=== PATIENT | female | born 1960 | race Caucasian/White ===

== ENCOUNTER → 2018-07-07 10:59 | Outpatient (CLI) | payer OTHER, SELFPAY ==
[2018-07-07 12:21] LABS: HIV 1 and 2 Antibody NEGATIVE (NEGATIVE); Hep C Virus Ab w/Reflex Quant NEGATIVE s/c (NEGATIVE)
[2018-07-09 14:26] LABS: RPR Screen Nonreactive (Nonreactive)
== END ==
PROVIDERS: PCP Family Medicine; Visit Provider Specialist
DX: Z20.2 Contact with and (suspected) exposure to infections with a predominantly sexual mode of transmission (principal)
CPT/HCPCS: 36415; 86592; 86703; 86803

== ENCOUNTER → 2020-05-28 09:39 | Outpatient (CLI) | payer OTHER, SELFPAY ==
[2020-05-28] MEDS: COVID-19 VACC(MODERNA-1)/PF 100 MCG/0.5 ML VIAL IM (09:43)
== END ==
PROVIDERS: PCP Family Medicine; Visit Provider Internal Medicine
DX: Z23 Encounter for immunization (principal)
CPT/HCPCS: 0011A; 91301

== ENCOUNTER → 2020-06-24 08:53 | Outpatient (CLI) | payer OTHER, SELFPAY ==
[2020-06-24] MEDS: COVID-19 VACC #2, MRNA(MOD) 100 MCG/0.5 ML VIAL IM (08:57)
== END ==
PROVIDERS: PCP Family Medicine; Visit Provider Internal Medicine
DX: Z23 Encounter for immunization (principal)
CPT/HCPCS: 0012A; 91301

== ENCOUNTER 2021-02-26 13:23 | Day surgery (SDC) | payer OTHER, SELFPAY ==
[2021-02-24 07:50] VITALS: BMI 43.0
[2021-02-26] VITALS (7 sets, daily range): BP systolic 127–171; BP diastolic 62–82; PULSE 60; RESP 14–20; TEMP 36.6–36.8; O2SAT 93–97; BMI 43.0
[2021-02-26 14:11] LABS: COVID19 -Nasal RAPID Negative (Negative)
[2021-02-26] MEDS: ACETAMINOPHEN 325 MG TABLET 975 MG PO (14:33)
[2021-02-26] MEDS: GABAPENTIN 300 MG CAPSULE PO (14:33)
[2021-02-26] MEDS: LACTATED RINGERS 1,000 ML 42 ML IV (14:33)
--- NOTE | 2021-02-26 14:53 | SUR.OPER ---
Supine on padded OR bed, head on pillow, Rightn arms secured on padded arm boards and left arm positioned on arm table at <90 degrees abduction, legs uncrossed, safety belt at thigh, tape over blanket over lower legs.
--- NOTE | 2021-02-26 14:55 | PM.PREOP ---
Pre-operative Note Interval Note History & Physical reviewed/Exam performed by Physician: Yes Changes to H&P: No
[2021-02-26] MEDS: BUPIVACAINE 0.25% (PF) VIAL 30 ML INJ (16:19)
[2021-02-26] MEDS: EPINEPHrine 1 MG/ML SUBCUT (16:20)
--- NOTE | 2021-02-26 16:29 | PM.OP.1 ---
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 Removal of sequestrum to the bone. CPT code 75633 [id number] Same procedure as scheduled: Yes Indications: Chronic infection involving the left middle finger soft tissue and bone with x-ray findings of bony destruction most likely due to osteomyelitis. Surgeon: Acosta Rivera Click Yes if Unassisted: Yes Anesthesia Type: General Operative Notes Findings: Significant amount of reactive tissue to the dorsal aspect of the finger. Complete loss of the central slip and dorsal joint capsule most likely due to chronic infection. Extremely brittle bone to both the proximal and middle phalanx. The entire articular surface to both sides of the joint had avulsed from its bony attachment but was still present and did not show significant signs of erosion. Signs of a sequestrum in the the proximal phalanx. Less signs in the middle phalanx. Signs of possible purulence in the the PIP joint. No obvious purulence noted to the soft tissue or dorsal to what was remaining of the extensor tendon. Closure Type: primary Specimen(s): other (Culture swabs taken. Soft tissue also sent in 3 separate specimens for cultures and sensitivity, aerobic and anaerobic, AFB and fungal. Bone sent in 3 separate specimens for cultures and sensitivity, aerobic and anaerobic, AFB and fungal.) Estimated Blood Loss (mL): 2 Tourniquet time (min): 39 Procedure in detail: On date of Service, patient was met in the holding area where her operative site was signed and witnessed by the OR staff. The surgeries once again discussed with the patient and any remaining questions or concerns she had were answered fully. Patient was taken back to the operating theater placed on the operating table in a supine position. Great care was taken to ensure all bony prominences were appropriately padded. Well-padded tourniquet was placed up along the upper extremity and a time-out was performed verifying patient's name procedure and operative site. Left arm was then prepped and draped in the normal sterile fashion. Esmarch was used to exsanguinate the limb the tourniquet was turned up to 250 mmHg. Curvilinear incision was made over the dorsal aspect of the finger. Fifteen blade was used incise through skin and fascial tissue. Sharp dissection was continued with a 15 blade. Swabs were taken of the dorsal aspect of the finger. When could see that the central slip in the dorsal capsule were gone. Deep knife was then used to sharply excise the tissue over the dorsal aspect of the PIP joint. This was set aside for soft tissue cultures and specimens. Rongeur was used to remove any remaining soft tissue at the PIP joint. As mentioned above this was split into 3 separate specimens. Patient had a lot of reactive tissue to the dorsal aspect of the finger. Sharp dissection was used to remove this reactive tissue leaving a more healthy extensor mechanism. As mentioned above, the articular surface had avulsed from the end of the proximal and middle phalanxes. Using a curette the intramedullary canal of the proximal phalanx was extensively debrided. We were able to remove quite a bit of material concerning for infection. This was set aside for microbiology. The same was then repeated for the intramedullary canal of the middle phalanx. I did not find the same amount of sequestrum as in the proximal phalanx. Both bones were quite brittle particularly right around the joint. The intramedullary aspect of both bones were copiously debrided using the curette. Next, intramedullary canals were then copiously irrigated with normal saline. This was then followed by the surrounding soft tissue as well. Once we felt that the finger was copiously irrigated and extensively debrided repair of the remaining extensor tendon to to the middle phalanx to try to create the central slip was done with 4-0 Ethibond. The skin was then loosely closed with 4-0 nylon. The finger was then cleaned, dried, and dressed patient was placed into a splint and taken to the PACU in stable condition. Complications: none Post-operative Condition: stable Disposition: PACU Plan for aftercare: Patient will be discharged home today. Once we get final cultures and sensitivities patient will most likely need to be on IV antibiotics for 6 weeks.
--- NOTE | 2021-02-26 16:42 | SUR.PHASEI ---
Pt is now sitting up drinking water and eating ice chips, Dr Rivera by talking with pt now who is A&O and denies pain or nausea, FBS 90 at 1635, VSS, no complaints resting comfortably
--- NOTE | 2021-02-26 17:17 | SUR.PHASEII ---
Pt up and ambulating gait steady, all dc instructions given and pt verbalizes understanding and states will fill both rxs she has with her from doctor. iv dcd site clear, pt dcd in stable condition via wc with all belongings and no complaints in good spirits
== END 2021-02-26 17:17 | disposition home or self-care (01) ==
PROVIDERS: PCP Family Medicine; Referring Provider Orthopaedic Surgery; Visit Provider Orthopaedic Surgery
PROC: (CPT 26235; principal; 2021-02-26 15:15)
DX: M86.9 Osteomyelitis, unspecified (principal); E11.9 Type 2 diabetes mellitus without complications; G47.33 Obstructive sleep apnea (adult) (pediatric); I10 Essential (primary) hypertension; E66.01 Morbid (severe) obesity due to excess calories; Z68.41 Body mass index [BMI] 40.0-44.9, adult; Z20.822 Contact with and (suspected) exposure to COVID-19; Z98.84 Bariatric surgery status; Z87.891 Personal history of nicotine dependence
CPT/HCPCS: 26235; 82962; 87070; 87075; 87101; 87116; 87176; 87205; 87206; 87635; J0171; J1885; J2405; J2704

== ENCOUNTER 2021-03-30 05:45 | Emergency (ER) | payer OTHER, SELFPAY ==
--- NOTE | 2021-03-30 06:16 | ED.GENADULT ---
HPI - General Adult General Stated complaint: confused/foggy x1 day Time Seen by Provider: 03/30/21 06:11 Related Data Home Medications Medication Instructions Recorded Confirmed biotin 2,500 mcg capsule 5 mg PO DAILY 07/07/18 02/26/21 bupropion HCl (smoking deter) 150 150 mg PO BID 07/07/18 02/26/21 mg tablet,12 hr sustained-release(smoking deterrent) cholecalciferol (vitamin D3) 250 10,000 unit PO DAILY 07/07/18 02/24/21 mcg (10,000 unit) capsule clonazepam 1 mg tablet 0.5 mg PO BID 07/07/18 02/26/21 felodipine 5 mg tablet,extended 5 mg PO DAILY 07/07/18 02/26/21 release 24 hr losartan 100 mg tablet (Cozaar) 100 mg PO DAILY 07/07/18 02/26/21 mecobalamin (vitamin B12) 1,000 3,000 mcg SL DAILY tab 07/07/18 02/26/21 mcg disintegrating tablet,sublingual metformin 750 mg tablet,extended 750 mg PO QPM 07/07/18 02/26/21 release 24 hr metoprolol tartrate 50 mg tablet 50 mg PO BID 07/07/18 02/26/21 pravastatin 40 mg tablet 40 mg PO DAILY 07/07/18 02/26/21 pramipexole 1 mg tablet (Mirapex) 1 mg PO BEDTIME 08/16/18 02/26/21 Previous Rx's Medication Instructions Recorded amoxicillin-potassium clavulanate 1 tab PO BID #20 tab 02/26/21 1,000 mg-62.5 mg tablet,ext.rel 12hr (Augmentin XR) hydrocodone 5 mg-acetaminophen 325 2 tab PO Q4-6H PRN #40 tab 02/26/21 mg tablet Allergies Allergy/AdvReac Type Severity Reaction Status Date / Time Sulfa (Sulfonamide Allergy Mild rash Verified 02/26/21 14:22 Antibiotics) Patient History Medical History (Updated 02/24/21 @ 08:10 by Liz Richard RN) Anxiety Depression Diabetes HTN (hypertension) MASHA (obstructive sleep apnea) Osteomyelitis Surgical History (Updated 02/24/21 @ 08:03 by Liz Richard RN) Hx of bariatric surgery Social History household members: spouse Smoking Status: Former smoker alcohol intake: current Smoking Status: Former smoker Discharge Plan Departure Prescriptions: No Action pravastatin 40 mg tablet 40 mg PO DAILY RF: 0 felodipine 5 mg tablet extended release 24 hr 5 mg PO DAILY RF: 0 clonazepam 1 mg tablet 0.5 mg PO BID RF: 0 metoprolol tartrate 50 mg tablet 50 mg PO BID RF: 0 losartan [Cozaar] 100 mg tablet 100 mg PO DAILY RF: 0 metformin 750 mg tablet extended release 24 hr 750 mg PO QPM RF: 0 cholecalciferol (vitamin D3) 10,000 unit capsule 10,000 unit PO DAILY RF: 0 biotin 2,500 mcg capsule 5 mg PO DAILY RF: 0 mecobalamin (vitamin B12) 1,000 mcg tablet,disintegrating 3,000 mcg SL DAILY RF: 0 bupropion HCl (smoking deter) 150 mg tablet extended release 12 hr 150 mg PO BID RF: 0 pramipexole [Mirapex] 1 mg tablet 1 mg PO BEDTIME RF: 0 amoxicillin-pot clavulanate [Augmentin XR] 1,000-62.5 mg tablet extended release 12 hr 1 tab PO BID Qty: 20 RF: 0 hydrocodone-acetaminophen 5-325 mg tablet 2 tab PO Q4-6H PRN (Reason: pain) Qty: 40 RF: 0 Referrals: Marco Martinez MD [Primary Care Provider] -
[2021-03-30 06:17] VITALS: BP 147/77; PULSE 88; RESP 16; TEMP 36.2; O2SAT 98
[2021-03-30 06:37] LABS: Add Manual Diff / Slide Review NO; Basophils Absolute Auto 100 /uL (0-100); Basophils Percent Auto 0.5 % (0-2); Eosinophils Absolute Auto 200 /uL (0-450); Eosinophils Percent Auto 1.3 % (2-4); Hematocrit 35.5 % (36-46); Hemoglobin 11.1 g/dL (12.0-16.0); Lymphocytes Absolute Auto 2200 /uL (1100-4500); Lymphocytes Percent Auto 16.8 % (25-40); Mean Corpuscular HGB Conc 31.2 % (30-36); Mean Corpuscular Hemoglobin 24.9 PG (26-34); Mean Corpuscular Volume 79.7 fL (80-100); Monocytes Absolute Auto 700 /uL (0-900); Monocytes Percent Auto 5.1 % (3-14); Neutrophils Absolute Auto 9800 /uL (1500-7000); Neutrophils Percent Auto 76.3 % (50-75); Platelet Count 316 X10^3/uL (150-400); Red Blood Cell Count 4.45 X10^6/uL (4.0-5.2); Red Cell Distribution Width 16.9 % (11.6-14.8); White Blood Cell Count 12.9 X10^3/uL (4.5-11.0)
[2021-03-30 06:45] LABS: Alanine Aminotransferase 18 IU/L (<35); Albumin 4.3 g/dL (3.5-5.0); Albumin Globulin Ratio 1.3 (1.0-2.8); Bilirubin Total 0.4 mg/dL (0.2-1.3); Carbon Dioxide 22 mmol/L (22-32); Chloride 105 mmol/L (98-107); Globulin 3.2 g/dL (1.7-4.1); HEMOLYSIS < 15 (0-50); Potassium 4.7 mmol/L (3.4-5.1); Sodium 138 mmol/L (137-145); Total Protein 7.5 g/dL (6.3-8.2)
[2021-03-30 06:48] LABS: Alkaline Phosphatase 108 U/L (38-126); Aspartate Aminotransferase 32 IU/L (14-36); BUN Creatinine Ratio 42.7 (6-22); Blood Urea Nitrogen 50 mg/dL (7-17); Calcium 10.9 mg/dL (8.4-10.2); Estimated Glomerular Filt Rate 47.2 mL/min (>60); Glucose 143 mg/dL (80-110)
--- NOTE | 2021-03-30 07:20 | ED.AMS ---
HPI - Altered Mental Status General Chief Complaint: Altered Mental Status Stated Complaint: confused/foggy x1 day Time Seen by Provider: 03/30/21 06:11 Source: patient Mode of arrival: Ambulatory Limitations: no limitations Related Data Home Medications Medication Instructions Recorded Confirmed biotin 2,500 mcg capsule 5 mg PO DAILY 07/07/18 02/26/21 bupropion HCl (smoking deter) 150 150 mg PO BID 07/07/18 02/26/21 mg tablet,12 hr sustained-release(smoking deterrent) cholecalciferol (vitamin D3) 250 10,000 unit PO DAILY 07/07/18 02/24/21 mcg (10,000 unit) capsule clonazepam 1 mg tablet 0.5 mg PO BID 07/07/18 02/26/21 felodipine 5 mg tablet,extended 5 mg PO DAILY 07/07/18 02/26/21 release 24 hr losartan 100 mg tablet (Cozaar) 100 mg PO DAILY 07/07/18 02/26/21 mecobalamin (vitamin B12) 1,000 3,000 mcg SL DAILY tab 07/07/18 02/26/21 mcg disintegrating tablet,sublingual metformin 750 mg tablet,extended 750 mg PO QPM 07/07/18 02/26/21 release 24 hr metoprolol tartrate 50 mg tablet 50 mg PO BID 07/07/18 02/26/21 pravastatin 40 mg tablet 40 mg PO DAILY 07/07/18 02/26/21 pramipexole 1 mg tablet (Mirapex) 1 mg PO BEDTIME 08/16/18 02/26/21 Previous Rx's Medication Instructions Recorded amoxicillin-potassium clavulanate 1 tab PO BID #20 tab 02/26/21 1,000 mg-62.5 mg tablet,ext.rel 12hr (Augmentin XR) hydrocodone 5 mg-acetaminophen 325 2 tab PO Q4-6H PRN #40 tab 02/26/21 mg tablet Allergies Allergy/AdvReac Type Severity Reaction Status Date / Time Sulfa (Sulfonamide Allergy Mild rash Verified 02/26/21 14:22 Antibiotics) Patient History Medical History Anxiety Depression Diabetes HTN (hypertension) MASHA (obstructive sleep apnea) Osteomyelitis Surgical History Hx of bariatric surgery Social History household members: spouse Smoking Status: Former smoker alcohol intake: current Smoking Status: Former smoker alcohol intake frequency: 0-2 drinks per day Substance Use Type: does not use Exam Initial Vital Signs Initial Vital Signs: Vital Signs Temperature 97.1 F L 03/30/21 06:17 Pulse Rate 88 03/30/21 06:17 Respiratory Rate 16 03/30/21 06:17 Blood Pressure 147/77 H 03/30/21 06:17 Pulse Oximetry 98 03/30/21 06:17 Course Orders Ordered: ED Orders 03/30/21 06:02 Complete Blood Count AUTO DIFF Stat Comprehensive Metabolic Panel Stat 03/30/21 07:35 Urinalysis and Microscopic Stat Vital Signs Vital signs: Vital Signs - 8 hr 03/30/21 06:17 03/30/21 07:48 Temperature 97.1 F L Pulse Rate 88 79 Respiratory Rate 16 17 Blood Pressure 147/77 H 132/67 Pulse Oximetry 98 99 MDM - Altered Mental Status Lab Data Result diagrams: 03/30/21 06:02 03/30/21 06:02 Labs: Lab Results 03/30/21 03/30/21 03/30/21 Range/Units 06:02 06:02 07:35 WBC 12.9 H (4.5-11.0) X10^3/uL RBC 4.45 (4.0-5.2) X10^6/uL Hgb 11.1 L (12.0-16.0) g/dL Hct 35.5 L (36-46) % MCV 79.7 L (80-100) fL MCH 24.9 L (26-34) PG MCHC 31.2 (30-36) % RDW 16.9 H (11.6-14.8) % Plt Count 316 (150-400) X10^3/uL Neut % (Auto) 76.3 H (50-75) % Lymph % (Auto) 16.8 L (25-40) % [place] % (Auto) 5.1 (3-14) % Eos % (Auto) 1.3 L (2-4) % Baso % (Auto) 0.5 (0-2) % Neut # (Auto) 9800 H (1519-7779) /uL Lymph # (Auto) 2200 (3680-0226) /uL [place] # (Auto) 700 (0-900) /uL Eos # (Auto) 200 (0-450) /uL Baso # (Auto) 100 (0-100) /uL Sodium 138 (137-145) mmol/L Potassium 4.7 (3.4-5.1) mmol/L Chloride 105 (98-107) mmol/L Carbon Dioxide 22 (22-32) mmol/L BUN 50 H (7-17) mg/dL Creatinine 1.17 H (0.52-1.04) mg/dL Estimated GFR 47.2 L (>60) mL/min BUN/Creatinine Ratio 42.7 H (6-22) Glucose 143 H (80-110) mg/dL Calcium 10.9 H (8.4-10.2) mg/dL Total Bilirubin 0.4 (0.2-1.3) mg/dL AST 32 (14-36) IU/L ALT 18 (<35) IU/L Alkaline Phosphatase 108 (38-126) U/L Total Protein 7.5 (6.3-8.2) g/dL Albumin 4.3 (3.5-5.0) g/dL Globulin 3.2 (1.7-4.1) g/dL Albumin/Globulin Ratio 1.3 (1.0-2.8) Urine Color Yellow Urine Appearance Clear Urine pH 5.0 (4.5-8.0) Ur Specific [place] 1.020 (1.000-1.035) Urine Protein Trace H (Negative) Urine Glucose (UA) Negative (Negative) g/dL Urine Ketones Negative (NEGATIVE) Urine Occult Blood Negative (Negative) Urine Nitrate Negative (Negative) Urine Bilirubin Negative (NEGATIVE) Urine Urobilinogen 0.2 (0.2) E.U./dL Ur Leukocyte Esterase Negative (NEGATIVE) Urine RBC 0-1/hpf (0-5/HPF) Urine WBC 0-1/hpf (0-5/HPF) Ur Squamous Epith Cells 1-5 /hpf (0-5/HPF) Calcium Oxalate Crystal Few H Urine Bacteria Occasional (0-1) (None) Hyaline Casts 5-10/lpf (None) Ur Culture Indicated? Cult not indicated Discharge Plan Departure Patient Disposition: Home Clinical Impression: Anxiety and depression Instructions: DI for Anxiety -- Adult Activity Restrictions/Additional Instructions: Continue your current medications. No work for the next 3 days. Contact her PCM today, arrange follow-up. Discussed the issues we discussed this morning. Have your doctor assist you in seeking a local counselor. Prescriptions: No Action pravastatin 40 mg tablet 40 mg PO DAILY RF: 0 felodipine 5 mg tablet extended release 24 hr 5 mg PO DAILY RF: 0 clonazepam 1 mg tablet 0.5 mg PO BID RF: 0 metoprolol tartrate 50 mg tablet 50 mg PO BID RF: 0 losartan [Cozaar] 100 mg tablet 100 mg PO DAILY RF: 0 metformin 750 mg tablet extended release 24 hr 750 mg PO QPM RF: 0 cholecalciferol (vitamin D3) 10,000 unit capsule 10,000 unit PO DAILY RF: 0 biotin 2,500 mcg capsule 5 mg PO DAILY RF: 0 mecobalamin (vitamin B12) 1,000 mcg tablet,disintegrating 3,000 mcg SL DAILY RF: 0 bupropion HCl (smoking deter) 150 mg tablet extended release 12 hr 150 mg PO BID RF: 0 pramipexole [Mirapex] 1 mg tablet 1 mg PO BEDTIME RF: 0 amoxicillin-pot clavulanate [Augmentin XR] 1,000-62.5 mg tablet extended release 12 hr 1 tab PO BID Qty: 20 RF: 0 hydrocodone-acetaminophen 5-325 mg tablet 2 tab PO Q4-6H PRN (Reason: pain) Qty: 40 RF: 0 Referrals: Marco Martinez MD [Primary Care Provider] - Stand Alone Forms: Work Release Note
--- NOTE | 2021-03-30 07:26 | ED_ITS ---
HPI - Altered Mental Status General Chief Complaint: Altered Mental Status Stated Complaint: confused/foggy x1 day Time Seen by Provider: 03/30/21 06:11 Source: patient Mode of arrival: Ambulatory Limitations: no limitations Related Data Home Medications Medication Instructions Recorded Confirmed biotin 2,500 mcg capsule 5 mg PO DAILY 07/07/18 02/26/21 bupropion HCl (smoking deter) 150 150 mg PO BID 07/07/18 02/26/21 mg tablet,12 hr sustained-release(smoking deterrent) cholecalciferol (vitamin D3) 250 10,000 unit PO DAILY 07/07/18 02/24/21 mcg (10,000 unit) capsule clonazepam 1 mg tablet 0.5 mg PO BID 07/07/18 02/26/21 felodipine 5 mg tablet,extended 5 mg PO DAILY 07/07/18 02/26/21 release 24 hr losartan 100 mg tablet (Cozaar) 100 mg PO DAILY 07/07/18 02/26/21 mecobalamin (vitamin B12) 1,000 3,000 mcg SL DAILY tab 07/07/18 02/26/21 mcg disintegrating tablet,sublingual metformin 750 mg tablet,extended 750 mg PO QPM 07/07/18 02/26/21 release 24 hr metoprolol tartrate 50 mg tablet 50 mg PO BID 07/07/18 02/26/21 pravastatin 40 mg tablet 40 mg PO DAILY 07/07/18 02/26/21 pramipexole 1 mg tablet (Mirapex) 1 mg PO BEDTIME 08/16/18 02/26/21 Previous Rx's Medication Instructions Recorded amoxicillin-potassium clavulanate 1 tab PO BID #20 tab 02/26/21 1,000 mg-62.5 mg tablet,ext.rel 12hr (Augmentin XR) hydrocodone 5 mg-acetaminophen 325 2 tab PO Q4-6H PRN #40 tab 02/26/21 mg tablet Allergies Allergy/AdvReac Type Severity Reaction Status Date / Time Sulfa (Sulfonamide Allergy Mild rash Verified 02/26/21 14:22 Antibiotics) Review of Systems Review of Systems ROS Unobtainable: All systems reviewed & are unremarkable except as noted in HPI and below Constitutional Constitutional: Denies chills, Denies fatigue and Denies fever(s) Eyes Comments: No vision complaints ENT Ears, Nose, Mouth, and Throat: Reports as per HPI, Denies vertigo and Denies dizziness Cardiovascular Cardiovascular: Denies chest pain, Denies syncope, Denies rapid heart rate and Denies pedal edema Respiratory Respiratory: Denies chest congestion, Reports cough, Denies hemoptysis and Denies pain with cough Gastrointestinal Gastrointestinal: Denies abdominal pain, Reports diarrhea and Denies nausea Genitourinary Genitourinary: Denies dysuria Musculoskeletal Musculoskeletal: Denies back pain and Denies myalgias Integumentary/Breasts Skin/Breast: Denies rash Neurologic Neurologic: Reports confusion, Denies vertigo, Denies dizziness, Denies syncope and Denies localized weakness Psychiatric Psychiatric: Reports anxiety, Reports confusion, Denies depression, Denies homicidal ideation and Denies suicidal ideation Endocrine Endocrine: Denies fatigue Patient History Medical History Anxiety Depression Diabetes HTN (hypertension) MASHA (obstructive sleep apnea) Osteomyelitis Surgical History Hx of bariatric surgery Social History household members: spouse Smoking Status: Former smoker alcohol intake: current Smoking Status: Former smoker alcohol intake frequency: 0-2 drinks per day Substance Use Type: does not use Exam Initial Vital Signs Initial Vital Signs: Vital Signs Temperature 97.1 F L 03/30/21 06:17 Pulse Rate 88 03/30/21 06:17 Respiratory Rate 16 03/30/21 06:17 Blood Pressure 147/77 H 03/30/21 06:17 Pulse Oximetry 98 03/30/21 06:17 Const General: cooperative, healthy appearing, comfortable, well developed and well groomed [facility] Head: normal to inspection, normocephalic and atraumatic Face and sinus: normal facial exam Mouth: oral mucosae normal Throat: posterior oropharynx normal Eyes Conjunctivae: conjunctivae normal Pupils: PERRL, normal by confrontation and accommodation normal EOM: EOM intact bilaterally Neck Neck: No lymphadenopathy Resp Effort & Inspection: normal respiratory effort Auscultation: clear to auscultation bilaterally Cardio Rate: regular rate Rhythm: regular rhythm Heart Sounds: S1 normal and S2 normal GI Palpation: soft and No tender Auscultation: normal bowel sounds Back/Spine/Pelvis Back: No CVA tenderness Skin General: no rashes or lesions noted Neuro General: patient alert, patient awake, patient oriented x3 and no focal motor deficits Extrem General: normal to inspection, no pedal edema and no calf tenderness Psych Appearance: grossly normal and well kempt Mental Status: mental status grossly normal Speech and Movement: speech and movement normal Mood: congruent mood Affect: normal affect Attitude: cooperative Thought Process: normal Thought Content: suicidality Scores NIH Stroke Scale Level of Conciousness: Alert, keenly responsive Ask month/age: Answers both questions correctly. Open/close eyes, close hand: Performs both tasks correctly Best gaze horizontal: Normal Visual leach: No visual loss Facial palsy: Normal symetrical movement Left arm drift: No drift for full 10 sec Right arm drift: No drift for full 10 sec Left leg drift: No drift for full 5 sec Right leg drift: No drift for full 5 sec Limb ataxia: Absent Sensory on face/arms/legs: Normal, no sensory loss Best language: No aphasia, normal Dysarthria: Normal Extinction or inattention: No abnormality Total NIH Stroke scale score: 0 Course Course Course Narrative: She does not have hypoglycemia, labs are otherwise acceptable. She is currently alert oriented, calm. She has no suicidal ideation. I question the role of clonazepam in the advance while on shift last night. She is well at this time. I have advised her to follow-up with her doctor. We discussed her maybe acquiring a counselor. Orders Ordered: ED Orders 03/30/21 06:02 Complete Blood Count AUTO DIFF Stat Comprehensive Metabolic Panel Stat Vital Signs Vital signs: Vital Signs - 8 hr 03/30/21 06:17 Temperature 97.1 F L Pulse Rate 88 Respiratory Rate 16 Blood Pressure 147/77 H Pulse Oximetry 98 MDM - Altered Mental Status Lab Data Result diagrams: 03/30/21 06:02 03/30/21 06:02 Labs: Lab Results 03/30/21 03/30/21 Range/Units 06:02 06:02 WBC 12.9 H (4.5-11.0) X10^3/uL RBC 4.45 (4.0-5.2) X10^6/uL Hgb 11.1 L (12.0-16.0) g/dL Hct 35.5 L (36-46) % MCV 79.7 L (80-100) fL MCH 24.9 L (26-34) PG MCHC 31.2 (30-36) % RDW 16.9 H (11.6-14.8) % Plt Count 316 (150-400) X10^3/uL Neut % (Auto) 76.3 H (50-75) % Lymph % (Auto) 16.8 L (25-40) % [place] % (Auto) 5.1 (3-14) % Eos % (Auto) 1.3 L (2-4) % Baso % (Auto) 0.5 (0-2) % Neut # (Auto) 9800 H (2126-4428) /uL Lymph # (Auto) 2200 (4330-4470) /uL [place] # (Auto) 700 (0-900) /uL Eos # (Auto) 200 (0-450) /uL Baso # (Auto) 100 (0-100) /uL Sodium 138 (137-145) mmol/L Potassium 4.7 (3.4-5.1) mmol/L Chloride 105 (98-107) mmol/L Carbon Dioxide 22 (22-32) mmol/L BUN 50 H (7-17) mg/dL Creatinine 1.17 H (0.52-1.04) mg/dL Estimated GFR 47.2 L (>60) mL/min BUN/Creatinine Ratio 42.7 H (6-22) Glucose 143 H (80-110) mg/dL Calcium 10.9 H (8.4-10.2) mg/dL Total Bilirubin 0.4 (0.2-1.3) mg/dL AST 32 (14-36) IU/L ALT 18 (<35) IU/L Alkaline Phosphatase 108 (38-126) U/L Total Protein 7.5 (6.3-8.2) g/dL Albumin 4.3 (3.5-5.0) g/dL Globulin 3.2 (1.7-4.1) g/dL Albumin/Globulin Ratio 1.3 (1.0-2.8) MDM Narrative Medical decision making narrative: The patient presents with confusion. She is a nurse at this hospital. Since arriving on shift last night, she did not feel right. She actually asked the nurse to a question that made no sense. She complains of feeling confused. She denies recent illness. She has no ENT complaints or sore throat. She has a dry, nonproductive cough. She has no chest discomfort. She denies dyspnea. She has no GI complaints. She is diabetic, she did not check her glucose last night. She does have anxiety/depression. Of her medications, she takes clonazepam, not consistently. She did take 1 last night prior to coming to work. Her [id number] about 1 week ago, quite stressful to her brother and apparently the patient. At the time the review, the patient does not complain of other additional stressors. She did feel poor enough to take clonazepam before coming to work. She has no personal complaints at this time. She denies suicidal or homicidal ideation. Discharge Plan Departure Patient Disposition: Home Clinical Impression: Anxiety and depression Instructions: DI for Anxiety -- Adult Activity Restrictions/Additional Instructions: Continue your current medications. No work for the next 3 days. Contact her PCM today, arrange follow-up. Discussed the issues we discussed this morning. Have your doctor assist you in seeking a local counselor. Prescriptions: No Action pravastatin 40 mg tablet 40 mg PO DAILY RF: 0 felodipine 5 mg tablet extended release 24 hr 5 mg PO DAILY RF: 0 clonazepam 1 mg tablet 0.5 mg PO BID RF: 0 metoprolol tartrate 50 mg tablet 50 mg PO BID RF: 0 losartan [Cozaar] 100 mg tablet 100 mg PO DAILY RF: 0 metformin 750 mg tablet extended release 24 hr 750 mg PO QPM RF: 0 cholecalciferol (vitamin D3) 10,000 unit capsule 10,000 unit PO DAILY RF: 0 biotin 2,500 mcg capsule 5 mg PO DAILY RF: 0 mecobalamin (vitamin B12) 1,000 mcg tablet,disintegrating 3,000 mcg SL DAILY RF: 0 bupropion HCl (smoking deter) 150 mg tablet extended release 12 hr 150 mg PO BID RF: 0 pramipexole [Mirapex] 1 mg tablet 1 mg PO BEDTIME RF: 0 amoxicillin-pot clavulanate [Augmentin XR] 1,000-62.5 mg tablet extended release 12 hr 1 tab PO BID Qty: 20 RF: 0 hydrocodone-acetaminophen 5-325 mg tablet 2 tab PO Q4-6H PRN (Reason: pain) Qty: 40 RF: 0 Referrals: Marco Martinez MD [Primary Care Provider] - Stand Alone Forms: Work Release Note
[2021-03-30 07:48] VITALS: BP 132/67; PULSE 79; RESP 17; O2SAT 99
[2021-03-30 07:56] LABS: Appearance Urine UA CLEAR; Bilirubin Urine UA NEGATIVE (NEGATIVE); Color Urine UA YELLOW; Glucose Urine UA NEGATIVE (Negative); Ketones Urine UA NEGATIVE (NEGATIVE); Leukocyte Esterase Urine UA NEGATIVE (NEGATIVE); Nitrite Urine UA NEGATIVE (Negative); Occult Blood Urine UA NEGATIVE (Negative); Protein Urine UA TRACE (Negative); Urobilinogen Urine UA 0.2 E.U./dL (0.2)
[2021-03-30 08:05] LABS: Bacteria Urine Occasional (0-1); Calcium Oxalate Crystals Urine Few; RBC Urine 0-1/HPF (0-5/HPF); Squamous Epithelial Cell Urine 1-5 /HPF (0-5/HPF); WBC Urine 0-1/HPF (0-5/HPF)
[2021-03-30 08:06] LABS: Culture Indicated Urine Cult Not Indicated; Hyaline Casts Urine 5-10/LPF
== END 2021-03-30 07:49 | disposition home or self-care (01) ==
PROVIDERS: Emergency Medicine; Emergency Provider Emergency Medicine; PCP Family Medicine
DX: F41.9 Anxiety disorder, unspecified (principal); F32.A Depression, unspecified; R41.0 Disorientation, unspecified
CPT/HCPCS: 36415; 80053; 81001; 85025; 99283

== ENCOUNTER 2021-06-29 17:42 | Emergency (ER) | payer OTHER, SELFPAY ==
[2021-06-29 17:43] VITALS: BP 168/89; PULSE 90; RESP 15; TEMP 36.2; O2SAT 99
[2021-06-29] MEDS: BACITRACIN OINT 0.9 GM PCKT 1 APPLIC TOP (18:22)
[2021-06-29] MEDS: LIDO 1%/SOD BICARB 8.4% (10ML) 10 ML SYRINGE INJ (18:22)
--- NOTE | 2021-06-29 18:22 | DI.CT.S_ITS ---
PROCEDURE: CT HEAD/BRAIN WO CON INDICATIONS: fall, large brow laceration TECHNIQUE: Noncontrast 4.5 mm thick angled axial sections acquired from the foramen magnum to the vertex, with coronal and sagittal reformats. For radiation dose reduction, the following was used: automated exposure control, adjustment of mA and/or kV according to patient size. COMPARISON: None. FINDINGS: Image quality: Excellent. CSF spaces: Basal cisterns are patent. No extra-axial fluid collections. The ventricles are symmetric in size and shape. Brain: No intracranial bleeds or masses. There is cerebral volume loss for age, with resultant ventricular and sulcal prominence. There are periventricular and deep white matter chronic small vessel ischemic changes. There is intracranial internal carotid artery atherosclerosis. Skull and face: Calvarium and visualized facial bones appear intact, without suspicious lesions. Sinuses: Visualized sinuses and mastoids are clear. IMPRESSION: 1. No acute intracranial abnormality. Dictated by: Pham Diallo M.D. on 06/29/2021 at 18:51 Approved by: Pham Diallo M.D. on 06/29/2021 at 18:52
--- NOTE | 2021-06-29 18:22 | DI.CT.S_ITS ---
PROCEDURE: CT CERVICAL SPINE WO CON INDICATIONS: fall, distracting injury TECHNIQUE: Noncontrast 3 mm thick sections acquired from the skull base to the T4 level. Sagittal and coronal reformats were then constructed. For radiation dose reduction, the following was used: automated exposure control, adjustment of mA and/or kV according to patient size. COMPARISON: None. FINDINGS: Image quality: Excellent. Bones: No fractures or dislocations. Visualized superior ribs are intact. Soft tissues: Prevertebral soft tissues are normal in thickness. No paravertebral hematomas. No apical pneumothoraces. IMPRESSION: 1. No fracture. Dictated by: Pham Diallo M.D. on 06/29/2021 at 18:52 Approved by: Pham Diallo M.D. on 06/29/2021 at 18:53
--- NOTE | 2021-06-29 18:40 | ED.FALL ---
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 this morning was taking a shower and fell hitting the right side of her forehead suffering add 4 cm laceration over the right brow. She states that she fell about 10:00 a.m. this morning however presents for care at 5:45 a.m. this evening. She states there was no loss of consciousness. She complains of some mild right shoulder pain with movement but states she has no other injuries from the fall. She describes slipping in the shower with no evidence of palpitations or syncope of any type. She denies headache, chest pain, palpitations, vomiting, diarrhea, abdominal pain. Related Data Home Medications Medication Instructions Recorded Confirmed biotin 2,500 mcg capsule 5 mg PO DAILY 07/07/18 02/26/21 bupropion HCl (smoking deter) 150 150 mg PO BID 07/07/18 02/26/21 mg tablet,12 hr sustained-release(smoking deterrent) cholecalciferol (vitamin D3) 250 10,000 unit PO DAILY 07/07/18 02/24/21 mcg (10,000 unit) capsule clonazepam 1 mg tablet 0.5 mg PO BID 07/07/18 02/26/21 felodipine 5 mg tablet,extended 5 mg PO DAILY 07/07/18 02/26/21 release 24 hr losartan 100 mg tablet (Cozaar) 100 mg PO DAILY 07/07/18 02/26/21 mecobalamin (vitamin B12) 1,000 3,000 mcg SL DAILY tab 07/07/18 02/26/21 mcg disintegrating tablet,sublingual metformin 750 mg tablet,extended 750 mg PO QPM 07/07/18 02/26/21 release 24 hr metoprolol tartrate 50 mg tablet 50 mg PO BID 07/07/18 02/26/21 pravastatin 40 mg tablet 40 mg PO DAILY 07/07/18 02/26/21 pramipexole 1 mg tablet (Mirapex) 1 mg PO BEDTIME 08/16/18 02/26/21 Previous Rx's Medication Instructions Recorded amoxicillin-potassium clavulanate 1 tab PO BID #20 tab 02/26/21 1,000 mg-62.5 mg tablet,ext.rel 12hr (Augmentin XR) hydrocodone 5 mg-acetaminophen 325 2 tab PO Q4-6H PRN #40 tab 02/26/21 mg tablet Allergies Allergy/AdvReac Type Severity Reaction Status Date / Time Sulfa (Sulfonamide Allergy Mild rash Verified 06/29/21 17:47 Antibiotics) Review of Systems Review of Systems Narrative: Remainder of complete review of systems is otherwise unremarkable except for that included in the HPI. Patient History Medical History Anxiety Depression Diabetes HTN (hypertension) MASHA (obstructive sleep apnea) Osteomyelitis Surgical History Hx of bariatric surgery Social History household members: spouse Smoking Status: Former smoker alcohol intake: current Smoking Status: Former smoker alcohol intake frequency: 0-2 drinks per day Substance Use Type: does not use Exam Initial Vital Signs Initial Vital Signs: Vital Signs Temperature 97.1 F L 06/29/21 17:43 Pulse Rate 90 06/29/21 17:43 Respiratory Rate 15 06/29/21 17:43 Blood Pressure 168/89 H 06/29/21 17:43 Pulse Oximetry 99 06/29/21 17:43 General: Healthy appearing, in no acute distress. Able to give a complete and coherent history. Well-nourished well-developed HEENT: Moist mucous membranes, mildly injected sclera with reactive pupils, 4 cm simple laceration over the right brow not involving the brow itself with bleeding controlled. Minor swelling starting over the upper lid Neck: No JVD, supple without midline point tenderness however she does have a distracting injury Respiratory: Lungs are clear to auscultation, no wheezing no rales no rhonchi. Full and symmetrical air movement Cardiac: Regular rate and rhythm no murmurs no bruits Abdomen: Soft, nontender, good bowel tones, no flank pain Skin: Warm and dry, no rashes Neurologic: Grossly neurologically intact with no obvious asymmetries or abnormalities Extremities: well perfused, she complains of tenderness generalized in the right shoulder girdle area however she has no point tenderness along bony landmarks rotator cuff or with full passive range of motion to the shoulder. Bruising to the left forearm Psych: Cooperative, somewhat guarded with poor overall insight into events today Procedures Laceration Repair Right brow laceration: Time of procedure: 19:56 Site: face Side (If applicable): right Size (cm): 4 Description: linear Depth: simple, single layer Local Anesthetic: lidocaine 1% and with bicarb Amount of anesthesia used (mL): 4 Pre-repair: wound explored and deep structures intact Skin layer closed with: nylon Size (cm): 5-0 Number of sutures: 5 Course Orders Ordered: ED Orders 06/29/21 18:22 CT cervical spine wo con Stat CT head/brain wo con Stat Complete Blood Count AUTO DIFF Stat Comprehensive Metabolic Panel Stat Ethanol (ETOH) Stat Troponin I Stat Discontinued Medications Bacitracin (Bacitracin Oint 0.9 Gm Pckt) 1 applic TOP NOW ONE Stop: 06/29/21 18:15 Last Admin: 06/29/21 18:22 Dose: 1 applic Documented by: KATHI Lidocaine/Sodium Bicarbonate (Lido 1%/Sod Bicarb 8.4% (10ml) 10 Ml Syringe) 10 ml INJ NOW ONE Stop: 06/29/21 18:15 Last Admin: 06/29/21 18:22 Dose: 10 ml Documented by: KATHI Vital Signs Vital signs: Vital Signs - 8 hr 06/29/21 17:43 Temperature 97.1 F L Pulse Rate 90 Respiratory Rate 15 Blood Pressure 168/89 H Pulse Oximetry 99 MDM - Fall Lab Data Result diagrams: 06/29/21 18:35 06/29/21 18:35 Labs: Lab Results 06/29/21 06/29/21 Range/Units 18:35 18:35 WBC 9.6 (4.5-11.0) X10^3/uL RBC 4.18 (4.0-5.2) X10^6/uL Hgb 11.3 L (12.0-16.0) g/dL Hct 34.4 L (36-46) % MCV 82.1 (80-100) fL MCH 27.0 (26-34) PG MCHC 32.9 (30-36) % RDW 17.0 H (11.6-14.8) % Plt Count 301 (150-400) X10^3/uL Neut % (Auto) 64.3 (50-75) % Lymph % (Auto) 21.9 L (25-40) % [place] % (Auto) 10.8 (3-14) % Eos % (Auto) 1.9 L (2-4) % Baso % (Auto) 1.1 (0-2) % Neut # (Auto) 6200 (0288-1512) /uL Lymph # (Auto) 2100 (7718-6880) /uL [place] # (Auto) 1000 H (0-900) /uL Eos # (Auto) 200 (0-450) /uL Baso # (Auto) 100 (0-100) /uL Sodium 141 (137-145) mmol/L Potassium 3.9 (3.4-5.1) mmol/L Chloride 110 H (98-107) mmol/L Carbon Dioxide 25 (22-32) mmol/L BUN 33 H (7-17) mg/dL Creatinine 0.93 (0.52-1.04) mg/dL Estimated GFR > 60.0 (>60) mL/min BUN/Creatinine Ratio 35.5 H (6-22) Glucose 89 (80-110) mg/dL Calcium 10.5 H (8.4-10.2) mg/dL Total Bilirubin 0.2 (0.2-1.3) mg/dL AST 28 (14-36) IU/L ALT 18 (<35) IU/L Alkaline Phosphatase 106 (38-126) U/L Troponin I < 0.012 (0.01-0.034) ng/mL Total Protein 7.4 (6.3-8.2) g/dL Albumin 4.2 (3.5-5.0) g/dL Globulin 3.2 (1.7-4.1) g/dL Albumin/Globulin Ratio 1.3 (1.0-2.8) Ethyl Alcohol < 10 ( - 10) mg/dL Imaging Data CT scan - head: Radiologist's Impression: FINDINGS:? Image quality:? Excellent.? ? CSF spaces:? Basal cisterns are patent.? No extra-axial fluid collections.? The ventricles are symmetric in size and shape.? ? Brain:? No intracranial bleeds or masses.? There is cerebral volume loss for age, with resultant ventricular and sulcal prominence.? There are periventricular and deep white matter chronic small vessel ischemic changes.? There is intracranial internal carotid artery atherosclerosis.? ? Skull and face:? Calvarium and visualized facial bones appear intact, without suspicious lesions.? ? Sinuses:? Visualized sinuses and mastoids are clear.? ? IMPRESSION:? 1. No acute intracranial abnormality.? ? ? Dictated by: Pham Diallo M.D. on 06/29/2021 at 18:51? ?? CT - cervical spine: Radiologist's Impression: FINDINGS:? Image quality:? Excellent.? ? Bones:? No fractures or dislocations.? Visualized superior ribs are intact.? ? Soft tissues:? Prevertebral soft tissues are normal in thickness.? No paravertebral hematomas.? No apical pneumothoraces.? ? ? IMPRESSION:? 1. No fracture.? ? Dictated by: Pham Diallo M.D. on 06/29/2021 at 18:52? ?? 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 It does not make sense that a nurse would fall down have that large laceration and not realize that there were time constraints particularly with facial wound. She is vague about the details including details about left forearm wound. With a distracting injury I am concerned with the mechanism of a fall and CT of the head and cervical spine will be obtained. Discharge Plan Departure Patient Disposition: Home Clinical Impression: Laceration of face, Fall Activity Restrictions/Additional Instructions: Thank you for coming in today Your wound came together nicely. You will need to have the stitches out on or about 07/06. If you notice increasing redness, drainage or pain you need to be re-evaluated for infection. Infection to face and scalp is very unusual because there is such good blood flow to these areas Remainder of your workup was very reassuring. Your lab work was normal and the CT scan of your head and her cervical spine were both normal with no signs of fractures or other acute injuries. I hope you heal quickly Prescriptions: No Action pravastatin 40 mg tablet 40 mg PO DAILY 0RF felodipine 5 mg tablet extended release 24 hr 5 mg PO DAILY 0RF clonazepam 1 mg tablet 0.5 mg PO BID 0RF metoprolol tartrate 50 mg tablet 50 mg PO BID 0RF losartan [Cozaar] 100 mg tablet 100 mg PO DAILY 0RF metformin 750 mg tablet extended release 24 hr 750 mg PO QPM 0RF cholecalciferol (vitamin D3) 10,000 unit capsule 10,000 unit PO DAILY 0RF biotin 2,500 mcg capsule 5 mg PO DAILY 0RF mecobalamin (vitamin B12) 1,000 mcg tablet,disintegrating 3,000 mcg SL DAILY 0RF bupropion HCl (smoking deter) 150 mg tablet extended release 12 hr 150 mg PO BID 0RF pramipexole [Mirapex] 1 mg tablet 1 mg PO BEDTIME 0RF amoxicillin-pot clavulanate [Augmentin XR] 1,000-62.5 mg tablet extended release 12 hr 1 tab PO BID Qty: 20 0RF hydrocodone-acetaminophen 5-325 mg tablet 2 tab PO Q4-6H PRN (Reason: pain) Qty: 40 0RF Referrals: Marco Martinez MD [Primary Care Provider] -
[2021-06-29 18:52] LABS: Add Manual Diff / Slide Review NO; Basophils Absolute Auto 100 /uL (0-100); Basophils Percent Auto 1.1 % (0-2); Eosinophils Absolute Auto 200 /uL (0-450); Eosinophils Percent Auto 1.9 % (2-4); Hematocrit 34.4 % (36-46); Hemoglobin 11.3 g/dL (12.0-16.0); Lymphocytes Absolute Auto 2100 /uL (1100-4500); Lymphocytes Percent Auto 21.9 % (25-40); Mean Corpuscular HGB Conc 32.9 % (30-36); Mean Corpuscular Volume 82.1 fL (80-100); Monocytes Absolute Auto 1000 /uL (0-900); Monocytes Percent Auto 10.8 % (3-14); Neutrophils Absolute Auto 6200 /uL (1500-7000); Neutrophils Percent Auto 64.3 % (50-75); Platelet Count 301 X10^3/uL (150-400); Red Blood Cell Count 4.18 X10^6/uL (4.0-5.2); White Blood Cell Count 9.6 X10^3/uL (4.5-11.0)
[2021-06-29 19:17] LABS: Alanine Aminotransferase 18 IU/L (<35); Albumin 4.2 g/dL (3.5-5.0); Albumin Globulin Ratio 1.3 (1.0-2.8); Alkaline Phosphatase 106 U/L (38-126); Aspartate Aminotransferase 28 IU/L (14-36); BUN Creatinine Ratio 35.5 (6-22); Bilirubin Total 0.2 mg/dL (0.2-1.3); Blood Urea Nitrogen 33 mg/dL (7-17); Calcium 10.5 mg/dL (8.4-10.2); Carbon Dioxide 25 mmol/L (22-32); Chloride 110 mmol/L (98-107); Estimated Glomerular Filt Rate > 60.0 mL/min (>60); Ethanol (ETOH) < 10 mg/dL; Globulin 3.2 g/dL (1.7-4.1); Glucose 89 mg/dL (80-110); HEMOLYSIS < 15 (0-50); Potassium 3.9 mmol/L (3.4-5.1); Sodium 141 mmol/L (137-145); Total Protein 7.4 g/dL (6.3-8.2)
[2021-06-29 19:28] LABS: Troponin I < 0.012 ng/mL (0.01-0.034)
== END 2021-06-29 20:05 | disposition home or self-care (01) ==
PROVIDERS: Emergency Provider Emergency Medicine; PCP Family Medicine
DX: S01.81XA Laceration without foreign body of other part of head, initial encounter (principal); Z87.891 Personal history of nicotine dependence; W18.2XXA Fall in (into) shower or empty bathtub, initial encounter; Y93.E1 Activity, personal bathing and showering
CPT/HCPCS: 12002; 36415; 70450; 72125; 80053; 80320; 84484; 85025; 99284

== ENCOUNTER → 2021-07-29 13:13 | Outpatient (CLI) | payer OTHER, SELFPAY ==
[2021-07-29 14:16] LABS: COVID19 -Nasal RAPID Negative (Negative)
== END ==
PROVIDERS: PCP Family Medicine; Visit Provider Family Medicine Sleep Medicine
DX: Z20.822 Contact with and (suspected) exposure to COVID-19 (principal)
CPT/HCPCS: 87635; C9803

== ENCOUNTER 2021-07-30 08:42 | Day surgery (SDC) | payer OTHER, SELFPAY ==
[2021-07-27 15:01] VITALS: BMI 42.5
--- NOTE | 2021-07-30 | PATH_ITS ---
[facility] Accession Number: [id number] . 01 Material submitted: . finger - LEFT MIDDLE FINGER BONE . 01 Diagnosis: Bone, Left Middle Finger, Biopsies: Fragments of osteocartilaginous tissue with osteonecrosis, interspersed marrow fibrosis, and focal plasma cells, suggestive of chronic osteomyelitis; see note. . Note: Additional step sections are examined. Clinical and radiographic correlation is recommended. MRV 08/10/2021 1431 Local . 01 Comment: This case has been reviewed by Dr. Lynette Monroy, who agrees with the above diagnosis. . 01 Electronically signed: . Ezio Castro MD, Dermatopathologist NPI- [id number] . 01 Gross description: . The specimen is received in formalin and labeled with the patient's name is composed of minute richmond-white bone fragments which measure 1.0 x 0.7 x 0.1 cm in aggregate. The specimen is entirely submitted following a brief period of decalcification. ([id number]) /MRV 08/05/2021 1102 Local . 01 Pathologist provided ICD-10: M86.9 . 01 CPT . 740533, 418373 Specimen Comment: A courtesy copy of this report has been sent to [phone], [phone] Specimen Comment: [id number] Performed at: [address] [id number] MD Tobin Connolly MD Phone: [phone]
[2021-07-30 09:11] VITALS: BP 167/82; PULSE 69; RESP 20; TEMP 36.2; O2SAT 98; BMI 42.5
[2021-07-30] MEDS: LACTATED RINGERS 1,000 ML 42 ML IV (09:24)
--- NOTE | 2021-07-30 09:32 | PM.PREOP ---
Pre-operative Note COVID-19 Criteria for continued procedure: Possibility delay results in more complex future surgery or treatment, Increased loss of function, Continuing or worsening of significant or severe pain, Deterioration of the patient's condition or overall health, Delay expected to result in less-positive ultimate med/surg outcome and Non-surgical alternatives not available or appropriate per current SOC Interval Note History & Physical reviewed/Exam performed by Physician: Yes Changes to H&P: No
--- NOTE | 2021-07-30 10:07 | SUR.OPER ---
Prone on padded OR bed, head in foam head support, gel chest rolls, gel pad under knees, pillow under lower legs, toes free of pressure, right arm secured on padded arm board at <90 degrees abduction. Left arm on surgery arm table under control of surgeon. Safety belt at thigh.
[2021-07-30 10:47] VITALS: BP 117/55; PULSE 78; RESP 20; TEMP 36.6; O2SAT 98
[2021-07-30] MEDS: BUPIVACAINE 0.25% (PF) 30 ML, EPINEPHrine 0.15 MG INJ (10:48)
[2021-07-30 10:51] VITALS: BP 122/62; PULSE 73; RESP 18; O2SAT 99
--- NOTE | 2021-07-30 10:56 | PM.OP.1 ---
Operative Date/Time/Diagnoses Date of procedure: 07/30/21 Time of procedure: 10:00 Pre-op diagnosis: Left middle finger swelling with possible infection Post-op diagnosis: same Procedure & Clinicians Procedure: Left middle finger irrigation and debridement Same procedure as scheduled: Yes Surgeon: Acosta Rivera Click Yes if Unassisted: Yes Anesthesia Type: General Operative Notes Findings: No sign of any obvious infectious process. No sign of any excess fluid or purulence. No sign of any abscess formation. No sign of any increase in bony destruction compared to last surgical procedure. Closure Type: primary Specimen(s): other (Soft tissue and bone were sent for cultures and sensitivities as well as a report, anaerobic, fungal, and AFB cultures. Bone was also sent to pathology.) Estimated Blood Loss (mL): 0 Tourniquet time (min): 35 Procedure in detail: On date of Service, patient was met in the holding area where her operative site was signed witnessed by the OR staff. Surgeries once again discussed with the patient in remaining questions or concerns she had were answered fully. Patient was taken back to the operating theater placed on the operating table in a supine position. Great care was taken to ensure that all bony prominences were appropriately padded. Well-padded tourniquet was placed along the upper extremity and a time-out was performed verifying patient's name procedure and operative site. Left arm was prepped and draped in the normal sterile manner tourniquet turned up to 250 mmHg. Previous incision was used. Fifteen blade was used to incise through skin and fascial tissue. Deep knife was then used to continued sharp dissection until the extensor mechanism was visualized. Patient had already lost her central slip from the previous infection. Deep knife was then used to open up the joint capsule. No sign of any obvious infectious process. No excess fluid no purulence. [place] was then used to remove some of the soft tissue around the joint and joint capsule and this was sent to microbiology. Combination of the rongeur and curette were then used to debride the intramedullary canal of the proximal phalanx as well as the residual joint surface which was completely devoid of any cartilage tissue. Bony samples were obtained and sent to microbiology as well as in a separate container for pathology. There is no sign of any necrotic tissue. Once we felt we had taken adequate cultures, the wound and joint was copiously irrigated. Joint capsule was closed with 4-0 Ethibond and the skin was then closed with 5 0 nylon. The hand was cleaned, dried, and dressed and patient was placed into a splint and taken to the PACU in stable condition. Complications: none Post-operative Condition: stable Disposition: PACU Plan for aftercare: Patient will be able to remove the splint next week. Stitches will be removed in 2 weeks. Once splint is removed no restrictions to range of motion. No lifting more than 2-3 lb for the next 2 weeks.
[2021-07-30 10:57] VITALS: BP 119/58; PULSE 72; RESP 18; O2SAT 99
[2021-07-30 11:16] VITALS: BP 113/52; PULSE 72; RESP 12; O2SAT 100
[2021-07-30 11:25] VITALS: BP 154/84; PULSE 60; RESP 16; O2SAT 97
== END 2021-07-30 11:41 | disposition home or self-care (01) ==
PROVIDERS: PCP Family Medicine; Referring Provider Orthopaedic Surgery; Visit Provider Orthopaedic Surgery
PROC: (CPT 11044; principal; 2021-07-30 10:00)
DX: M87.845 Other osteonecrosis, left finger(s) (principal); M86.9 Osteomyelitis, unspecified; Z98.890 Other specified postprocedural states; I10 Essential (primary) hypertension; E11.9 Type 2 diabetes mellitus without complications; Z79.84 Long term (current) use of oral hypoglycemic drugs; F32.9 Major depressive disorder, single episode, unspecified
CPT/HCPCS: 11044; 87070; 87075; 87102; 87116; 87176; 87205; 87206; J0171; J1100; J1885; J2250; J2704; J3010